=== PATIENT | female | born 1975 | race Caucasian/White ===

== ENCOUNTER 2018-07-20 08:04 | Outpatient (CLI) | payer OTHER ==
--- NOTE | 2018-07-20 08:57 | ULT ---
ULTRASOUND ABDOMEN COMPLETE: HISTORY: 42-year-old female with nausea, emesis and abdominal bloating. FINDINGS: The gallbladder has normal wall thickness and has no evidence of gallstones or sludge. The hepatic e chogenicity is normal. The kidneys have normal echogenicity, and there is no hydronephrosis. There is no splenomegaly. There is no abdominal aortic aneurysm. No free fluid is identified. The inferi or vena cava is visualized. The pancreas is visualized, although ultrasound is relatively insensitiv e for pancreatic pathology compared to CT and MRI. There is no biliary dilation. The common duct ca liber is 4 mm. IMPRESSION: Normal. sheldon POS: YAMILA
== END 2018-07-20 08:05 | disposition home or self-care (01) ==
LOC: BICULT 08:04
PROVIDERS: ATTEND Internal Medicine Gastroenterology
DX: R11.2 Nausea with vomiting, unspecified (principal); K58.9 Irritable bowel syndrome, unspecified; R14.0 Abdominal distension (gaseous); R19.4 Change in bowel habit; R63.5 Abnormal weight gain
CPT/HCPCS: 76700

== ENCOUNTER 2020-03-23 08:30 | Outpatient (CLI) | payer OTHER ==
--- NOTE | 2020-03-23 09:00 | ULT ---
Transabdominal pelvic ultrasound INDICATION: History of hysterectomy and right oophorectomy with pelvic pain and left ovarian cyst TECHNIQUE: Grayscale, color Doppler imagesand spectral doppler images were obtained of the pelvis via transabdominal approach only. FINDINGS: Uterus: Uterus is surgically absent Right adnexa: Right ovary is surgically absent. Left adnexa: 2.8 x 1.9 x 1.1 cm. The left ovary is normal appearing with normal flow. Free fluid: None present. Additional findings: None. IMPRESSION: 1. Postprocedural change of a hysterectomy and right oophorectomy. 2. Left ovary had a normal sonographic appearance. No focal adnexal lesion identified.
== END 2020-03-23 08:31 | disposition home or self-care (01) ==
LOC: BICULT 08:30
PROVIDERS: ATTEND Nurse Practitioner Women's Health
DX: N83.202 Unspecified ovarian cyst, left side (principal); Z98.890 Other specified postprocedural states; Z90.710 Acquired absence of both cervix and uterus; Z90.721 Acquired absence of ovaries, unilateral
CPT/HCPCS: 76856; 93976

== ENCOUNTER 2020-03-27 08:37 | Outpatient (CLI) | payer OTHER ==
--- NOTE | 2020-03-29 07:47 | MMO ---
Bilateral MAMMO Bilat Screen [facility]. CLINICAL HISTORY: Patient is 44 years old and is seen for screening. The patient has no family history of breast cancer. The patient has no personal history of cancer. The patient has a history of bilateral Implants in 2018. VIEWS: The views performed were: bilateral craniocaudal with tomosynthesis and bilateral mediolateral oblique with tomosynthesis. FILMS COMPARED: No prior imaging studies are available for comparison. This study has been interpreted with the assistance of computer-aided detection. MAMMOGRAM FINDINGS: The breasts are heterogeneously dense, which could obscure a lesion on mammography. There are no suspicious masses, suspicious calcifications, or new areas of architectural distortion. IMPRESSION: THERE IS NO MAMMOGRAPHIC EVIDENCE OF MALIGNANCY. A ROUTINE FOLLOW-UP MAMMOGRAM IN 1 YEAR IS RECOMMENDED. THE RESULTS OF THIS EXAM WERE SENT TO THE PATIENT. ACR BI-RADS Category 1 - Negative MAMMOGRAPHY NOTE: 1. A negative mammogram report should not delay a biopsy if a dominant of clinically suspicious mass is present. 2. Approximately 10% to 15% of breast cancers are not detected by mammography. 3. Adenosis and dense breasts may obscure an underlying neoplasm. Reported by: CHING NIEVES MD Electonically Signed: [id number]
== END 2020-03-27 08:38 | disposition home or self-care (01) ==
LOC: BICMAMMO 08:37
PROVIDERS: ATTEND Family Medicine
DX: Z12.31 Encounter for screening mammogram for malignant neoplasm of breast (principal); Z98.82 Breast implant status
CPT/HCPCS: 77063; 77067

== ENCOUNTER 2021-07-03 11:13 | Outpatient (CLI) | payer OTHER | END 2021-07-03 11:14 | disposition home or self-care (01) | LOC: BICCT 11:13 | PROVIDERS: ATTEND Physician Assistant Medical | DX: R10.32 Left lower quadrant pain (principal) | CPT/HCPCS: 74177 ==